=== PATIENT | female | born 1970 | race Caucasian/White ===

== ENCOUNTER 2025-04-12 13:53 | Inpatient (IN) | payer MEDICAID ==
[~2025-04-12] VITALS: Ht 162.6 cm; Wt 67.7 kg
[2025-04-12 13:57] VITALS: PULSE 66; RESP 12; O2SAT 99
--- NOTE | 2025-04-12 14:07 | ED.PDOC ---
HPI Comments This is a 55 year old female presenting to the ED with chief complaint of syncope. Patient reports that she came into the hospital to visit an admitted family member, noting she donated blood earlier today. Patient relays that she then had a syncopal episode while visiting her family member. Patient states that she is now unable to walk on her own. Nurse notes that the patient's BP was at 78/53 initially, improving to 100/72 now. Patient denies any head injury, chest pain, SOB, N/V, or dizziness. 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 LOCAL TRUCK DRIVER History Family History Family History: Reviewed,noncontributory to illness, Unknown Social History Smoker: Non-Smoker Alcohol: Denies ETOH Use Drugs: Denies Drug Use Lives In: Home Constitutional: reports: fatigue; denies: chills, diaphoresis, fever, malaise, sweats, weakness, others EENTM: denies: blurred vision, double vision, ear bleeding, ear discharge, ear drainage, ear pain, ear ringing, eye pain, eye redness, hearing loss, mouth pain, mouth swelling, nasal discharge, nose bleeding, nose congestion, nose pain, photophobia, tearing, throat pain, throat swelling, voice changes, others Respiratory: denies: cough, hemoptysis, orthopnea, SOB at rest, shortness of breath, SOB with excertion, stridor, wheezing, others Cardiovascular: reports: syncope; denies: chest pain, dizzy spells, diaphoresis, Dyspnea on exertion, edema, irregular heart beat, left arm pain, lightheadedness, palpitations, PND, others Gastrointestinal: denies: abdomen distended, abdominal pain, blood streaked bowels, constipated, diarrhea, dysphagia, difficulty swallowing, hematemesis, melena, nausea, poor appetite, poor fluid intake, rectal bleeding, rectal pain, vomiting, others Genitourinary: denies: abnormal vagina bleeding, burning, dyspareunia, dysuria, flank pain, frequency, hematuria, incontinence, pain, , vagina discharge, urgency, others Neurological: denies: dizziness, fainting, headache, left sided numbness, left sided weakness, numbness, paresthesia, pre-existing deficit, right sided numbness, right sided weakness, seizure, speech problems, tingling, tremors, weakness, others Musculoskeletal: denies: back pain, gout, joint pain, joint swelling, muscle pain, muscle stiffness, neck pain, others Integumetry: denies: bruises, change in color, change in hair/nails, dryness, laceration, lesions, lumps, rash, wounds, others Allergic/Immunocompromised: denies: Difficulty Healing, Frequent Infections, Hives, Itching, others Hematologic/Lymphatic: denies: anemia, blood clots, easy bleeding, easy bruising, swollen glands, others Endocrine: denies: excessive hunger, excessive sweating, excessive thirst, excessive urination, flushing, intolerance to cold, intolerance to heat, unexplained weight gain, unexplained weight loss, others Psychiatric: denies: anxiety, bipolar disorder, depression, hopeless, panic disorder, schizophrenia, sleepless, suicidal, others All Other Systems: Reviewed and Negative Physical Exam General Appearance: No Apparent Distress, Normal HEENT: Normal ENT Inspection, Pharynx Normal, TMs Normal Neck: Full Range of Motion, Non-Tender, Normal, Normal Inspection Respiratory: Chest Non-Tender, Lungs Clear, No Accessory Muscle Use, No Respiratory Distress, Normal Breath Sounds Cardiovascular: No Edema, No JVD, No Murmur, No Gallop, Normal Peripheral Pulses, Regular Rate/Rhythm Breast Exam: Deferred Gastrointestinal: No Organomegaly, Non Tender, No Pulsatile Mass, Normal Bowel Sounds, Soft Genitalia: Deferred Pelvic: Deferred Rectal: Deferred Extremities: No calf tenderness, Normal capillary refill, Normal inspection, Normal range of motion, Non-tender, No pedal edema Musculoskeletal : Apperance: Normal Neurologic: Alert, cadd operator II-XII nml as Tested, No Motor Deficits, Normal Affect, Normal Mood, No Sensory Deficits Cerebellar Function: Normal Reflexes: Normal Skin: Dry, Normal Color, Warm Lymphatic: No Adenopathy Was a procedure done? Was a procedure done?: No CP Differential Dx Differential Diagnosis: ME Differential Diagnosis: HTN Essential, HTN Accelerated Differential Diagnosis: Gastritis, Myocardial Infarction X-Ray, Labs, Meds, VS Vital Signs Date Time Temp Pulse Resp B/P (MAP) Pulse Ox O2 Delivery O2 Flow Rate FiO2 04/12/25 17:00 68 17 102/58 (73) 98 04/12/25 16:10 59 04/12/25 16:05 61 04/12/25 16:00 59 04/12/25 15:07 62 04/12/25 14:07 96.4 67 14 114/74 99 96.4 04/12/25 13:57 96.5 66 12 124/74 (91) 99 96.5 04/12/25 13:57 66 12 99 Room Air* 0 21 Lab Test 04/12/25 16:48 04/12/25 14:54 04/12/25 14:03 Range/Units Troponin I High Sensitivity 4 < 3 L 3 L </=34 ng/L White Blood Count 6.7 4.4-10.8 10^3/uL Red Blood Count 4.96 4.0-5.20 10^6/uL Hemoglobin 14.9 12.2-16.2 g/dL Hematocrit 44.1 36.0-46.0 % Mean Corpuscular Volume 88.9 80.0-100.0 fL Mean Corpuscular Hemoglobin 30.0 28.0-32.0 pg Mean Corpuscular Hemoglobin Concent 33.7 32.0-36.0 g/dL Red Cell Distribution Width 13.6 11.8-14.3 % Platelet Count 153 140-450 10^3/uL Mean Platelet Volume 9.3 6.9-10.8 fL Neutrophils (%) (Auto) 45.2 37.0-80.0 % Lymphocytes (%) (Auto) 47.7 10.0-50.0 % Monocytes (%) (Auto) 5.3 0.0-12.0 % Eosinophils (%) (Auto) 1.2 0.0-7.0 % Basophils (%) (Auto) 0.6 0.0-2.0 % Neutrophils # (Auto) 3.0 1.6-8.6 10 ^3/uL Lymphocytes # (Auto) 3.2 0.4-5.4 10 ^3/uL Monocytes # (Auto) 0.4 0-1.3 10 ^3/uL Eosinophils # (Auto) 0.1 0-0.8 10 ^3/uL Basophils # (Auto) 0 0-0.2 10 ^3/uL Nucleated Red Blood Cells 0.1 % Sodium Level 142 136-145 mmol/L Potassium Level 3.9 3.5-5.1 mmol/L Chloride Level 106 98-107 mmol/L Carbon Dioxide Level 24 20-31 mmol/L Anion Gap 12 5-15 Blood Urea Nitrogen 10 9-23 mg/dL Creatinine 1.05 H 0.550-1.02 mg/dL Glomerular Filtration Rate Calc 64 >90 mL/min BUN/Creatinine Ratio 9.5 L 10.0-20.0 Serum Glucose 91 74-106 mg/dL Calcium Level 9.8 8.7-10.4 mg/dL Time of 1ST Reevaluation: 14:56 Reevaluation 1ST: Improved Patient Education/Counseling: Diagnosis, Treatment Family Education/Counseling: No Family Present SEPSIS Sepsis Screen Physician Orders Chest Portable (04/12/25 14:03) Head Without Contrast (04/12/25 14:03) Electrocardigram (04/12/25 15:03) Electrocardigram (04/12/25 17:03) Urinalysis (04/12/25 14:04) Vital Signs Date Time Temp Pulse Resp B/P (MAP) Pulse Ox O2 Delivery O2 Flow Rate FiO2 04/12/25 17:00 68 17 102/58 (73) 98 04/12/25 16:10 59 04/12/25 16:05 61 04/12/25 16:00 59 04/12/25 15:07 62 04/12/25 14:07 96.4 67 14 114/74 99 96.4 04/12/25 13:57 96.5 66 12 124/74 (91) 99 96.5 04/12/25 13:57 66 12 99 Room Air* 0 21 Laboratory Tests Test 04/12/25 14:03 White Blood Count 6.7 10^3/uL (4.4-10.8) Departure 1 Departure Time of Disposition: 17:29 (Patient presented with syncope today and should be admitted. Data: 1. I ordered and reviewed the result of at least 3 labs includin g a CBC, BMP, and troponin. 2. I independently interpreted the following tests: EKG which shows a sinus arrhythmia and a chest x-ray which shows benign chest and a CT head which shows benign brain.Risk:This patient has a high risk of morbidity due to further diagnostic testing or treatment and may suffer from an acute cardiac, neurologic, or infectious disorder. Rationale: Patient should be admitted to the hospital for further management.) Impression: Primary Impression: Syncope and collapse Disposition: ADMITTED INPATIENT Admit to: Tele Condition: Guarded e-Prescriptions No Active Prescriptions or Reported Meds Critical Care Note Critical Care Time?: Yes Critical care comment: Syncope and collapse Authorized and Performed by: Huy Dixon MD Total critical care time: Approximately 39 minutes Due to a high probability of clinically significant, life threatening deterioration, the patient required my highest level of preparedness to intervene emergently and I personally spent this critical care time directly and personally managing the patient. This critical care time included obtaining a history; examining the patient; pulse oximetry; ordering and review of studies; arranging urgent treatment with development of a management plan; evaluation of patient's response to treatment; frequent reassessment; and, discussions with other providers. This critical care time was performed to assess and manage the high probability of imminent, life-threatening deterioration that could result in multi-organ failure. It was exclusive of separately billable procedures and treating other patients and teaching time. Please see my other sections and the rest of the note for further information on patient assessment and treatment. Stability Stability form required: No Heart Score Heart Score: Heart Score Response (Comments) Value History Moderate Suspicious 1 EKG Normal 0 Age 45-64 1 Risk Factors 1 or 2 risk factors 1 Troponin 1-2 x's Normal limit 1 Total 4 I personally scribed for HUY DIXON MD ([email or web address]) on 04/12/25 at 14:07. Electronically submitted by Tang Hurtado ([email or web address]). HUY DIXON MD Apr 12, 2025 14:07
[2025-04-12 14:14] LABS: Hematocrit 44.1 % (36.0-46.0); Hemoglobin 14.9 g/dL (12.2-16.2); Mean Corpuscular Hemoglobin 30.0 pg (28.0-32.0); Mean Corpuscular Volume 88.9 fL (80.0-100.0); Nucleated Red Blood Cells % 0.1 %
[2025-04-12 14:24] LABS: Chloride 106 mmol/L (98-107); Potassium 3.9 mmol/L (3.5-5.1); Sodium 142 mmol/L (136-145)
[2025-04-12 14:25] LABS: Anion Gap 12 (5-15); Calcium 9.8 mg/dL (8.7-10.4); Carbon Dioxide 24 mmol/L (20-31)
[2025-04-12 14:30] LABS: BUN/Creatinine Ratio 9.5 (10.0-20.0); Blood Urea Nitrogen 10 mg/dL (9-23); Glucose 91 mg/dL (74-106)
--- NOTE | 2025-04-12 14:57 | DVH ---
CHEST RADIOGRAPH Indication: syncope Technique: Single frontal view of the chest was obtained Comparison: None FINDINGS: Lines and Tubes: None Lungs: No focal consolidation. Appears to be a gas-filled viscus below the left diaphragm most likely gas-filled stomach if however pneumoperitoneum is of clinical concern recommend CT of the abdomen an d pelvis. Pleura: No effusion. No pneumothorax. Cardiomediastinal contours: Unremarkable Bones: No acute osseous abnormality. IMPRESSION: 1. No acute cardiopulmonary disease.
--- NOTE | 2025-04-12 15:00 | DVH ---
CLINICAL INFORMATION: Syncope. Acute loss of consciousness. TECHNIQUE: Axial imaging was obtained through the brain without contrast. Coronal and sagittal reform atted images were obtained, reviewed, and stored. Images were reviewed in brain and bone windows. Al l CT scans at this medical facility are performed using dose modulation techniques as appropriate to a performed exam including the following: Automated exposure control was utilized; adjustment of the MA and/or KV according to patient size; and use of iterative reconstruction technique. CTDIvol = 65.5 7 mGy DLP = 1290.57 mGy-cm COMPARISON: None FINDINGS: Artifact limits evaluation for subtle findings. There is no acute intracranial hemorrhage. No mass effect or midline shift. The ventricles and sulci are within normal limits in size for age. B alex cisterns are patent. The calvarium is unremarkable. Paranasal sinuses and mastoid air cells are clear. IMPRESSION: No CT evidence of acute intracranial abnormality.
--- NOTE | 2025-04-12 15:08 | ECG ---
[facility] Test Date: 2025-04-12 Test Time: 15:07:06 Pat Name: TWIN KATE Department: [facility] ED Room: [address] [place] [address] Gender: F Inclusion Paraeducator: YESENIA : 1970 Requested By: HUY MEDINA Order Number: [id number] Reading MD: Frank Ortiz Measurements Intervals [place] Rate: 62 P: 66 [place]: 132 QRS: -13 QRSD: 82 T: 63 QT: 420 QTc: 427 Interpretive Statements Sinus rhythm Electronically Signed On 04-15-2025 20:32:17 PDT by Frank Ortiz Please click the below link to view image of tracing.
--- NOTE | 2025-04-12 18:10 | ECG ---
[facility] Test Date: 2025-04-12 Test Time: 18:09:16 Pat Name: TWIN KATE Department: [facility] ED Patient ID: [id number] Room: [address] [place] [address] Gender: F Cargo Service Supervisor: AM : 1970 Requested By: HUY MEDINA Order Number: [id number] Reading MD: Frank Ortiz Measurements Intervals [place] Rate: 64 P: 75 [place]: 161 QRS: -20 QRSD: 83 T: 60 QT: 433 QTc: 447 Interpretive Statements Sinus rhythm Borderline left axis deviation Electronically Signed On 04-15-2025 20:34:49 PDT by Frank Ortiz Please click the below link to view image of tracing.
[2025-04-12] MEDS: NALOXONE HCL 1MG/ML 2ML SYRINGE IV ONE (18:30)
--- NOTE | 2025-04-12 19:26 | ECG ---
[facility] Test Date: 2025-04-12 Test Time: 16:05:58 Pat Name: TWIN KATE Department: [facility] ED Room: [address] [place] [address] Gender: F Computer Programming Supervisor: ROSARIO : 1970 Requested By: HUY MEDINA Order Number: [id number] Reading MD: Frank Ortiz Measurements Intervals [place] Rate: 61 P: 73 GA: 168 QRS: 2 QRSD: 81 T: 67 QT: 441 QTc: 445 Interpretive Statements Sinus rhythm Electronically Signed On 04-15-2025 20:32:35 PDT by Frank Ortiz Please click the below link to view image of tracing.
[2025-04-12 19:30] VITALS: O2SAT 99
[2025-04-12 19:40] LABS: Urine Protein, UAD Negative (Negative)
[2025-04-12 19:56] LABS: Amphetamine Screen, Urine Neg (NEGATIVE); Barbiturate Scree,Urine Neg (NEGATIVE); Benzodiazephine Screen, Urine Neg (NEGATIVE); Cannabinoid Screen, Urine Neg (NEGATIVE); Cocaine Screen, Urine Neg (NEGATIVE); Opiate Scree,Urine Neg (NEGATIVE); Phencyclidine Screen, Urine Neg (NEGATIVE)
[2025-04-12] MEDS: IOHEXOL 350 MG/ML 100ML IJ ONE (21:01)
--- NOTE | 2025-04-12 21:29 | DVH ---
CT ANGIO HEAD/Neck INDICATION: ALOC TECHNIQUE: Volumetric multi-detector CT images of the head were obtained without administration of IV contrast.. CT angiography along with MIP and MPR images were obtained of the [place] of [place] arteri es. CT angiography along with MIP and MPR images were obtained of the cervical carotid and vertebral arteries. All CT scans at this facility use dose modulation, iterative reconstruction, and/or weight based dosing when appropriate to reduce radiation dose to as low as reasonably achievable. 3-D postpr ocessing was performed on a separate workstation under radiologist supervision. IV CONTRAST: 100 mL of low osmolar intravenous iodinated contrast material was administered. COMPARISON: CT HEAD WITHOUT CONTRAST on DOS: 04/12/25 FINDINGS: CT HEAD: Parenchyma: No acute hemorrhage. There is no mass effect, midline shift, or herniation. There is pres ervation of the real white differentiation. Ventricles: There is no hydrocephalus. Extra-axial spaces: There are no extra-axial fluid collections. Other: The bony structures are intact. Visualized portions of the paranasal sinuses and mastoid air cells are clear. ANTERIOR CIRCULATION: Distal internal carotid arteries including the petrous, cavernous, and supraclinoid segments are stevenson nt bilaterally. Anterior cerebral arteries including the A1 and A2 segments are patent bilaterally. Anterior communicating artery patent without aneurysm formation. Middle cerebral arteries including the horizontal M1 and sylvian M2 are patent bilaterally. Posterior communicating arteries are seen bilaterally. POSTERIOR CIRCULATION: Posterior cerebral arteries are patent bilaterally. Vertebral arteries are codominant The intracranial segments of the vertebral arteries are patent bilaterally. The basilar artery is patent without aneurysm formation. The posterior inferior cerebellar arteries are patent bilaterally. CERVICAL VESSELS: The thoracic aortic arch is patent without evidence of aneurysmal dilatation or dissection. The right common carotid artery, carotid bulb, and cervical segment of the right internal carotid art koby are patent The left common carotid artery, carotid bulb, and cervical segment of the left internal carotid arter y are patent The cervical segments of the right vertebral artery are patent OTHER: Small 2 mm oval-shaped pulmonary nodules located in the periphery of the right upper lobe. IMPRESSION: 1. No large vessel occlusion, aneurysmal dilatation, or dissection seen within the intracranial or ce rvical vessels. 2. Small 2 mm oval-shaped pulmonary nodules located in the periphery of the right upper lobe. Conside r dedicated CT of the chest if clinically indicated.
--- NOTE | 2025-04-12 22:09 | DVHHPRES ---
History of Present Illness Resident Creating Document: DONOVAN CASTANO History of Present Illness Ms. Mooney is a 55-year-old female with no relevant prior medical history, who presents today with chief complaint of loss of consciousness. The patient states she donated blood and then came to visit a family member at this institution today when she had sudden onset of nausea and loss of consciousness. She was brought to the ED for further evaluation. On evaluation in the ED, vitals were within normal range. 12 lead EKG showed normal sinus rhythm. Initial labs show CBC within normal range and creatinine 1.05. UDS and blood alcohol are negative. UA is without significant findings. Chest Xray, head CT, and head/neck CT angio show no significant findings. She was given Naloxone 2 mg IV once and started on IV fluids. She was admitted for further work up and management. PMHx: Fibroids Surgical History: Hysterectomy Allergies: Denies Social: Denies drug, alcohol, and tobacco use. Lives with her parents, states she feels safe. Review of Systems Review of Systems Constitutional: Denies weight loss, fever and chills. HEENT: Denies changes in vision and hearing. Respiratory: Denies shortness of breath and cough Cardiovascular: Denies chest discomfort or palpitations GI: Denies abdominal distention, abdominal pain, diarrhea : Denies dysuria and urinary frequency. Musculoskeletal: denies symptoms Skin: Denies rash and pruritus. Neurological: Refers headache, denies dizziness vision or hearing problems Allergies: Coded Allergies: No Known Drug Allergy (Verified Allergy, Unknown, 10/17/15) Exam Vital Signs Vital Signs Date Time Temp Pulse Resp B/P (MAP) Pulse Ox O2 Delivery O2 Flow Rate FiO2 04/12/25 21:06 67 12 104/69 (81) 96 04/12/25 19:30 Room Air* 0 21 04/12/25 19:00 97.1 97.1 Exam General: The patient somnolent and oriented in person place and time. Patient following commands HEENT: Normocephalic, atraumatic, pain to palpation of occipital region, normal reactive pupils, EOM intact, pink conjunctiva, pink moist mucous membrane Respiratory/pulmonary: Bilateral chest expansion, no pain on palpation of chest wall, clear lungs bilaterally, vesicular murmurs present in almost all lung bell, no associated crackles or wheezes. Cardiovascular: Normal RRR, normal S1 and S2, no murmurs Abdomen: Abdomen nondistended, normal bowel sounds, soft, there is no pain to palpation in any of the abdominal quadrants, no palpable masses. Extremities: No deformities, there is no peripheral edema present at the lower extremities, normal pulses Skin: No rashes or pruritus, there is no sacral edema present at this time. Neurological: Intact cranial nerves with no focal neurologic deficits, Brudzinski and Kernig sign negative. Labs/Xrays Labs Test 04/12/25 16:48 04/12/25 16:30 04/12/25 14:03 Range/Units Troponin I High Sensitivity 4 </=34 ng/L Urine Color Light-yellow Yellow Urine Clarity Clear Clear Urine pH 7.0 5.0-9.0 Urine Specific [place] 1.012 1.001-1.035 Urine Protein Negative Negative Urine Ketones Negative Negative Urine Blood Negative Negative /uL Urine Nitrite Negative Negative Urine Bilirubin Negative Negative Urine Urobilinogen Normal Negative mg/dL Urine Leukocyte Esterase Negative Negative /uL Urine RBC 1 0 - 4 /hpf Urine Microscopic WBC 1 0-5 /HPF Urine Squamous Epithelial Cells Few <5 /hpf Urine Bacteria None seen None Seen /hpf Urine Glucose Normal Normal mg/dL Urine Opiates Screen Neg NEGATIVE Urine Fentanyl Screen Neg NEGATIVE Urine Barbiturates Screen Neg NEGATIVE Urine Phencyclidine Screen Neg NEGATIVE Urine Amphetamines Screen Neg NEGATIVE Urine Benzodiazepines Screen Neg NEGATIVE Urine Cocaine Screen Neg NEGATIVE Urine Cannabinoids Screen Neg NEGATIVE White Blood Count 6.7 4.4-10.8 10^3/uL Red Blood Count 4.96 4.0-5.20 10^6/uL Hemoglobin 14.9 12.2-16.2 g/dL Hematocrit 44.1 36.0-46.0 % Mean Corpuscular Volume 88.9 80.0-100.0 fL Mean Corpuscular Hemoglobin 30.0 28.0-32.0 pg Mean Corpuscular Hemoglobin Concent 33.7 32.0-36.0 g/dL Red Cell Distribution Width 13.6 11.8-14.3 % Platelet Count 153 140-450 10^3/uL Mean Platelet Volume 9.3 6.9-10.8 fL Neutrophils (%) (Auto) 45.2 37.0-80.0 % Lymphocytes (%) (Auto) 47.7 10.0-50.0 % Monocytes (%) (Auto) 5.3 0.0-12.0 % Eosinophils (%) (Auto) 1.2 0.0-7.0 % Basophils (%) (Auto) 0.6 0.0-2.0 % Neutrophils # (Auto) 3.0 1.6-8.6 10 ^3/uL Lymphocytes # (Auto) 3.2 0.4-5.4 10 ^3/uL Monocytes # (Auto) 0.4 0-1.3 10 ^3/uL Eosinophils # (Auto) 0.1 0-0.8 10 ^3/uL Basophils # (Auto) 0 0-0.2 10 ^3/uL Nucleated Red Blood Cells 0.1 % Sodium Level 142 136-145 mmol/L Potassium Level 3.9 3.5-5.1 mmol/L Chloride Level 106 98-107 mmol/L Carbon Dioxide Level 24 20-31 mmol/L Anion Gap 12 5-15 Blood Urea Nitrogen 10 9-23 mg/dL Creatinine 1.05 H 0.550-1.02 mg/dL Glomerular Filtration Rate Calc 64 >90 mL/min BUN/Creatinine Ratio 9.5 L 10.0-20.0 Serum Glucose 91 74-106 mg/dL Calcium Level 9.8 8.7-10.4 mg/dL SEPSIS Sepsis Screen Date sepsis recognized/suspect: Apr 12, 2025 Time Sepsis recognized/suspect: 1054 Recent Procedure: No On Antibiotic Therapy: No Respiratory Rate >20: No Heart Rate >90: No Temp<36 C (96.8 F) or >38.3 C: No SBP <90 or MAP <65 mmHG: Yes New Acute Mental Status Change: No Is the patient on CPAP, BIPAP,: No Physician Orders Insert/Manage Urinary Catheter QSHIFT (04/12/25 18:00) Angio Head/Neck (04/12/25 19:47) Vital Signs Date Time Temp Pulse Resp B/P (MAP) Pulse Ox O2 Delivery O2 Flow Rate FiO2 04/12/25 21:06 67 12 104/69 (81) 96 04/12/25 19:30 99 Room Air* 0 21 04/12/25 19:00 97.1 63 12 113/75 (88) 98 97.1 04/12/25 18:09 64 04/12/25 18:09 64 04/12/25 17:00 68 17 102/58 (73) 98 04/12/25 16:10 59 04/12/25 16:05 61 04/12/25 16:00 59 04/12/25 15:07 62 Laboratory Tests Test 04/12/25 14:03 White Blood Count 6.7 10^3/uL (4.4-10.8) Medications Medications Dose Ordered Sig/Julianna Route Start Time Stop Time Status Last Admin Dose Admin Naloxone HCl 2 mg ONCE ONCE IV 04/12/25 15:00 04/12/25 15:01 DC 04/12/25 18:30 2 MG Assessment/Plan Assessment/Plan Assessment and Plan: Syncope possible vasovagal - Naloxone 2 mg IV once. UDS negative - NS 1000 cc bolus - NS maintenance 125 cc/hr - Ordered STI - Probably secondary to blood donation (patient had drop on her hemoglobin and hematocrit). Completed pocus at bedside which showed collapsible IVC. Stroke ruled out - Head CT: No evidence of acute intracranial abnormality - Head and Neck angio: No large vessel occlusion, aneurysmal dilatation, or dissection seen within the intracranial or cervical vessels Pulmonary Nodule - Head and and Neck angio: 2 mm oval-shaped pulmonary nodules located in the periphery of the right upper lobe - Follow up as out patient [place] hemodynamically mediated (VMN) Hypokalemia, 2.9 - Potassium IV 60 mEq IV. - Monitor BMP Normocytic Anemia, likely dilutional - Monitor H and H Morbid obesity, BMI 54.9 kg/m2 - I have counseled on healthy life style modifications - Recommend re-weighing patient since her phenotype is not concordant with morbid obesity Diet: NPO DVT prophylaxis: Enoxaparin 40 mg SC daily GI prophylaxis: Protonix 40 mg IV daily Case discussed with Dr. Fagan Goals of care discussed with patient and her mother, Aurea ([phone]), for over 25 minutes. FULL CODE. Plan discussed with: Patient, Other (Mother, Nurses) Date of Service: Apr 12, 2025 Billing Provider: LINNETTE FAGAN MD Common Visit Codes: 65081-[id number] INP/OBS CARE (HIGH) Secondary Visit Codes: 48036-TPWFHEQT CARE PLAN 30 MINUTES DONOVAN CASTANO RESIDENT Apr 12, 2025 22:08 SHAMA OWUSU RESIDENT Apr 13, 2025 08:04
[2025-04-12] MEDS: SODIUM CHLORIDE 0.9% 1,000 ML IV SCH (22:18)
[2025-04-12] MEDS: IBUPROFEN 600 MG TAB PO ONE (22:37)
[2025-04-12 22:54] LABS: Alkaline Phosphatase 58 U/L (46-116); Magnesium 2.4 mg/dL (1.6-2.6); Total Protein 7.2 g/dL (5.7-8.2)
[2025-04-12 22:55] LABS: Albumin 4.2 g/dL (3.2-4.8); Bilirubin, Direct 0.1 mg/dL (<0.3); Bilirubin, Total 0.5 mg/dL (0.2-1.0)
[2025-04-12 22:57] LABS: Alanine Aminotransferase < 9 U/L (7-40)
[2025-04-13] MEDS: SODIUM CHLORIDE 0.9% 1,000 ML IV ONE (00:20)
[2025-04-13 03:53] LABS: Hematocrit 27.5 % (36.0-46.0); Hemoglobin 9.8 g/dL (12.2-16.2); Mean Corpuscular Hemoglobin 31.0 pg (28.0-32.0); Mean Corpuscular Volume 87.3 fL (80.0-100.0); Nucleated Red Blood Cells % 0.1 %
[2025-04-13 04:11] LABS: Anion Gap 11 (5-15); Carbon Dioxide 21 mmol/L (20-31); Sodium 145 mmol/L (136-145)
[2025-04-13 04:12] LABS: Calcium 6.6 mg/dL (8.7-10.4); Chloride 113 mmol/L (98-107); Potassium 2.9 mmol/L (3.5-5.1)
[2025-04-13 04:17] LABS: BUN/Creatinine Ratio 12.7 (10.0-20.0); Glucose 77 mg/dL (74-106)
[2025-04-13 04:18] LABS: Blood Urea Nitrogen 8 mg/dL (9-23)
[2025-04-13] MEDS: POTASSIUM CHLORIDE 60 MEQ, LIDOCAINE 1% (LOCAL ANESTH.) 6 ML in SODIUM CHL 0.9% 500 ML IV ONE (08:48)
[2025-04-13] MEDS: ENOXAPARIN SOD 40 MG/0.4 ML SYRINGE SC SCH (09:19)
[2025-04-13] MEDS: CALCIUM GLUC 1,000mg/50ml-NS 50 ML IV SCH (09:44)
[2025-04-13] MEDS: PANTOPRAZOLE 40 MG/10 ML VIAL INJ IV SCH (10:42)
[2025-04-13 13:08] VITALS: PULSE 74; RESP 13; O2SAT 97
[2025-04-13 14:59] VITALS: BP 111/59; PULSE 60; RESP 16; RESP 18; TEMP 98.1; O2SAT 98
[2025-04-13 16:44] VITALS: BP_SYST 111; BP_SYST 123; BP_DIAS 59; BP_DIAS 87; PULSE 60; PULSE 68; RESP 16; RESP 24; TEMP 97.5; TEMP 98.1; O2SAT 100; O2SAT 98
--- NOTE | 2025-04-13 18:19 | DVHPN2 ---
Subjective I am assuming the care of the patient was from today onwards. Patient's family member at bedside who told me that patient after donating blood was in some were with her friend and passed out. 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 Medications Current Medications Medications Dose Ordered Sig/Julianna Route Start Time Stop Time Status Last Admin Dose Admin Enoxaparin Sodium 40 mg DAILY SC 04/13/25 10:00 04/13/25 09:19 40 MG Sodium Chloride 1,000 ml @ 125 mls/hr Q8H IV 04/12/25 22:00 04/13/25 16:32 125 MLS/HR Pantoprazole Sodium 40 mg DAILY IV 04/13/25 10:00 04/13/25 10:42 40 MG Laboratory Results Laboratory Tests 04/13/25 03:10 Chemistry Test 04/13/25 03:10 Calcium Level 6.6 mg/dL (8.7-10.4) L Urinalysis Test 04/12/25 16:30 Urine Color Light-yellow (Yellow) Urine Clarity Clear (Clear) Urine pH 7.0 (5.0-9.0) Urine Specific [place] 1.012 (1.001-1.035) Urine Protein Negative (Negative) Urine Ketones Negative (Negative) Urine Blood Negative /uL (Negative) Urine Nitrite Negative (Negative) Urine Bilirubin Negative (Negative) Urine Urobilinogen Normal mg/dL (Negative) Urine Leukocyte Esterase Negative /uL (Negative) Urine RBC 1 /hpf (0 - 4) Urine Microscopic WBC 1 /HPF (0-5) Urine Squamous Epithelial Cells Few /hpf (<5) Urine Bacteria None seen /hpf (None Seen) Urine Glucose Normal mg/dL (Normal) Assessment/Plan Assessment/Plan 1. syncope suspect vasovagal/orthostatic, rule out cardiac arrhythmias 2. Acute kidney injury suspected secondary to vasomotor nephropathy 3. Hypokalemia 4. Morbid obesity classIII -check orthostatic vitals, close monitoring on telemetry, 2D echo cardiology consultation Plan discussed with: Other (Patient's family member at bedside.) My Orders Orders - SANIA BENTON MD Procedure Category Date Status Time Echo 2d Mode Cardiac US 04/13/25 Logged DOP 15:16 * Cardiology Consult CONS 04/13/25 Transmitted 15:19 Date of Service: Apr 13, 2025 Billing Provider: SANIA BENTON MD Common Visit Codes: [id number] INP/OBS CARE(MOD) SANIA BENTON MD Apr 13, 2025 18:19
--- NOTE | 2025-04-13 18:24 | DVHINCON2 ---
Date Seen: Apr 13, 2025 Referring Physician MD Swathi Reason for Consultation Syncope History of Present Illness This is a 55-year-old female patient who presents to the emergency room with chief complaint of syncopal episode. The patient reports that earlier in the day she donated blood then came to this facility to visit a friend who is a patient here. While visiting her friend, she reports loss of consciousness. She reports precipitating symptoms of cool/ clammy skin, followed by loss of consciousness. She reports waking up in a hospital bed. Cardiology has been consulted at this time for syncope. Initial twelve electrocardiogram reveals normal sinus rhythm without any significant ST segment changes. Serial troponin levels have been negative. Significant past medical history includes seizure disorder, intestinal parasite infection, TIA, and remote history of methamphetamine use. Past Medical History Past medical history reviewed. No other significant than mentioned above. Past Surgical History Hysterectomy x3 Family History: FH: seizures G8 MOTHER FH: skin cancer G8 MOTHER Migraine headaches in mother G8 MOTHER Family History Family history reviewed. Social History Patient reports a previous history of methamphetamine use, quit in 2003 Denies tobacco use Denies alcohol use Allergies: Coded Allergies: No Known Drug Allergy (Verified Allergy, Unknown, 10/17/15) Home Meds No Active Prescriptions or Reported Meds Home Meds Denies taking any prescribed medications Current Medications Current Medications Medications (Trade) Dose Ordered Sig/Julianna Route PRN Reason Start Time Stop Time Status Last Admin Enoxaparin Sodium (Lovenox) 40 mg DAILY SC 04/13/25 10:00 04/13/25 09:19 Sodium Chloride 1,000 ml @ 125 mls/hr Q8H IV 04/12/25 22:00 04/13/25 16:32 Pantoprazole Sodium (Protonix) 40 mg DAILY IV 04/13/25 10:00 04/13/25 10:42 Calcium Gluconate/ Sodium Chloride 50 ml @ 100 mls/hr Q30M IV 04/13/25 08:00 04/13/25 09:40 DC 04/13/25 09:49 Review of Systems Constitutional: No symptom reported Ears, Nose, & Throat: No symptom reported Eyes: No symptom reported Neurological: Syncope Pulmonary/Respiratory: No symptoms reported Cardiovascular: No symptom reported Gastrointestinal: No symptom reported Genitourinary: No symptom reported Musculoskeletal: No symptom reported Skin: No symptom reported Psychiatric: No symptom reported Endocrine: No symptom reported Hematologic/Lymphatic: No symptom reported Vital Signs Vital Signs Date Time Temp Pulse Resp B/P (MAP) Pulse Ox O2 Delivery O2 Flow Rate FiO2 04/13/25 16:44 97.5 68 24 123/87 (99) 100 97.5 04/13/25 14:59 Room Air* 0 21 Physical Exam General Appearance: Cooperative. Well-developed. Well-nourished. No acute distress. Pulmonary/Respiratory: Clear, bilateral breaths sounds. Cardiovascular/Chest: Regular rate and rhythm. Peripheral Pulses: 2+ Radial (R). 2+ Radial (L). 2+ Pedal (R). 2+ Pedal (L) Abdominal Exam: Normal bowel sounds. Ankle Exam: Negative ankle edema Lower extremities: Negative lower extremity edema Neuro/Mental Status: A/OX4, coherent. Thoughts/Psych: Normal thought pattern. Appropriate mood and affect. Good judgment and insight. Appearance: No acute distress. Skin Exam: Normal inspection. Normal color. Warm and dry. Labs/Diagnostic Data Labs Test 04/13/25 10:27 04/13/25 03:10 04/12/25 23:32 04/12/25 22:20 Range/Units HIV (1&2) Antibody Negative Negative White Blood Count 4.8 # 4.4-10.8 10^3/uL Red Blood Count 3.15 L 4.0-5.20 10^6/uL Hemoglobin 9.8 #L 12.2-16.2 g/dL Hematocrit 27.5 #L 36.0-46.0 % Mean Corpuscular Volume 87.3 80.0-100.0 fL Mean Corpuscular Hemoglobin 31.0 28.0-32.0 pg Mean Corpuscular Hemoglobin Concent 35.5 32.0-36.0 g/dL Red Cell Distribution Width 13.1 11.8-14.3 % Platelet Count 102 L 140-450 10^3/uL Mean Platelet Volume 9.2 6.9-10.8 fL Neutrophils (%) (Auto) 51.7 37.0-80.0 % Lymphocytes (%) (Auto) 41.4 10.0-50.0 % Monocytes (%) (Auto) 5.3 0.0-12.0 % Eosinophils (%) (Auto) 1.1 0.0-7.0 % Basophils (%) (Auto) 0.5 0.0-2.0 % Neutrophils # (Auto) 2.5 1.6-8.6 10 ^3/uL Lymphocytes # (Auto) 2.0 0.4-5.4 10 ^3/uL Monocytes # (Auto) 0.3 0-1.3 10 ^3/uL Eosinophils # (Auto) 0.1 0-0.8 10 ^3/uL Basophils # (Auto) 0 0-0.2 10 ^3/uL Nucleated Red Blood Cells 0.1 % Sodium Level 145 136-145 mmol/L Potassium Level 2.9 L 3.5-5.1 mmol/L Chloride Level 113 H 98-107 mmol/L Carbon Dioxide Level 21 20-31 mmol/L Anion Gap 11 5-15 Blood Urea Nitrogen 8 L 9-23 mg/dL Creatinine 0.63 # 0.550-1.02 mg/dL Glomerular Filtration Rate Calc 106 >90 mL/min BUN/Creatinine Ratio 12.7 10.0-20.0 Serum Glucose 77 74-106 mg/dL Calcium Level 6.6 L 8.7-10.4 mg/dL Treponema pallidum Antibody Non-reactive Negative Plasma/Serum Blood Alcohol < 3.0 <10 mg/dL Lactic Acid Level 1.0 0.4-2.0 mmol/L Ammonia < 10 L 11-32 umol/L Test 04/12/25 16:48 04/12/25 16:30 04/12/25 14:54 04/12/25 14:03 Range/Units Troponin I High Sensitivity 4 </=34 ng/L Vitamin B12 Level 252 211-911 pg/mL Vitamin D 25-Hydroxy 41.1 30.0-100 ng/mL Urine Color Light-yellow Yellow Urine Clarity Clear Clear Urine pH 7.0 5.0-9.0 Urine Specific [place] 1.012 1.001-1.035 Urine Protein Negative Negative Urine Ketones Negative Negative Urine Blood Negative Negative /uL Urine Nitrite Negative Negative Urine Bilirubin Negative Negative Urine Urobilinogen Normal Negative mg/dL Urine Leukocyte Esterase Negative Negative /uL Urine RBC 1 0 - 4 /hpf Urine Microscopic WBC 1 0-5 /HPF Urine Squamous Epithelial Cells Few <5 /hpf Urine Bacteria None seen None Seen /hpf Urine Glucose Normal Normal mg/dL Urine Opiates Screen Neg NEGATIVE Urine Fentanyl Screen Neg NEGATIVE Urine Barbiturates Screen Neg NEGATIVE Urine Phencyclidine Screen Neg NEGATIVE Urine Amphetamines Screen Neg NEGATIVE Urine Benzodiazepines Screen Neg NEGATIVE Urine Cocaine Screen Neg NEGATIVE Urine Cannabinoids Screen Neg NEGATIVE Phosphorus Level 3.3 2.4-5.1 mg/dL Magnesium Level 2.4 1.6-2.6 mg/dL Total Bilirubin 0.5 0.2-1.0 mg/dL Direct Bilirubin 0.1 <0.3 mg/dL Aspartate Amino Transferase (AST) 21 13-40 U/L Alanine Aminotransferase (ALT) < 9 7-40 U/L Alkaline Phosphatase 58 46-116 U/L Total Protein 7.2 5.7-8.2 g/dL Albumin 4.2 3.2-4.8 g/dL Thyroid Stimulating Hormone (TSH) 1.69 0.55-4.78 uIU/mL Hemoglobin A1c 4.8 <5.7 % A1C Assessment Syncope, rule out cardiac etiology Rule out structural heart disease ?Vasovagal episode Hypokalemia, resolved History of TIA History of methamphetamine use Obesity Plan/Recommendation We will continue with the following plan/recommendations (Dr. Ortiz): * Transthoracic echocardiogram to evaluate cardiac function * Bilateral carotid ultrasound * Head/neck CT reveals no large vessel occlusions, aneurysmal dilatation, or dissections within the intracranial or cervical vessels * Close telemetry monitoring * Monitor and replete electrolytes as needed Thank you for allowing us to care for this patient. Please call with any questions or concerns. Critical care time spent: 44 minutes This medical document was created using an electronic medical record system with voice recognition software and computerized dictation system. Although this document has been carefully reviewed, there might still be some phonetic and typographical errors. Occasional wrong-word or ``sound-alike substitutions may have occurred due to the inherent limitations of voice recognition software. These areas are purely typographical due to imperfections of the software programs and do not reflect any compromise in the patient's medical care. Please read the chart carefully and recognize, using context, where these substitutions have occurred. Plan discussed with: Patient NYHA Physical activity limitations: NA Date of Service: Apr 13, 2025 Billing Provider: MICHELLE ALANIZ Cardiology Common Codes: [id number] INP/OBS CARE (High) Cardiology Consultation Codes: [id number] CONSULT <45MIN MICHELLE ALANIZ Apr 13, 2025 18:24
[2025-04-13 21:00] VITALS: BP 105/71; PULSE 58; RESP 16; TEMP 98; O2SAT 96
[2025-04-14 01:00] VITALS: BP 97/69; PULSE 76; RESP 16; TEMP 97.6; O2SAT 96
[2025-04-14 05:00] VITALS: BP 115/74; PULSE 71; RESP 17; TEMP 97.8; O2SAT 96
[2025-04-14 05:29] LABS: Hematocrit 36.5 % (36.0-46.0); Hemoglobin 12.6 g/dL (12.2-16.2); Mean Corpuscular Hemoglobin 30.8 pg (28.0-32.0); Mean Corpuscular Volume 89.2 fL (80.0-100.0); Nucleated Red Blood Cells % 0.1 %
[2025-04-14 05:39] LABS: Chloride 105 mmol/L (98-107); Potassium 4.2 mmol/L (3.5-5.1); Sodium 140 mmol/L (136-145)
[2025-04-14 05:40] LABS: Anion Gap 11 (5-15); Calcium 9.2 mg/dL (8.7-10.4); Carbon Dioxide 24 mmol/L (20-31)
[2025-04-14 05:45] LABS: BUN/Creatinine Ratio 7.8 (10.0-20.0); Glucose 77 mg/dL (74-106)
[2025-04-14 05:51] LABS: Blood Urea Nitrogen 7 mg/dL (9-23)
[2025-04-14 08:47] VITALS: BP 115/74; PULSE 64; RESP 16; TEMP 98; O2SAT 100
[2025-04-14 11:35] LABS: Hepatitis B Surface Antigen Negative (Negative)
[2025-04-14 11:40] LABS: Hepatitis C Antibody Negative (Negative)
[2025-04-14 13:00] VITALS: BP_SYST 105; BP_SYST 113; BP_SYST 97; BP_DIAS 60; BP_DIAS 67; BP_DIAS 88; PULSE 111; PULSE 67; PULSE 81; RESP 19; TEMP 97.6; O2SAT 97
--- NOTE | 2025-04-14 16:47 | DVHSR ---
APPROVED REPORT EXAM: Two-dimensional and M-mode echocardiogram with Doppler and color Doppler. Blood Pressure: 115/74 mmHg INDICATION Syncope RISK FACTORS Height: 5'4, Weight: 319 DIMENSIONS LVDd4.6 (3.8-5.7cm)LA (2D)2.2 (1.9-4.0cm)Aortic Root3.1 (2.0-3.7cm) LVDs2.9 (2.5-4.0cm)LA (MM) (1.9-4.0cm)Aortic Cusp Exc1.6 (1.5-2.0cm) EF (%) 60.0 (55-70%)Rt. Atrium3.4 (1.9-4.0cm)Asc. Aorta cm IVSd0.6 (0.7-1.1cm)RV (D) (1.8-2.4cm) PWd1.1 (0.7-1.1cm) Mitral Valve MitralMitral Stenosis E wave0.57m/sMV Mean GR.mmHg A wave0.60m/sMV Peak GR.mmHg E/A ratio0.92D MVAcm2 DECEL [id number] 1/2 Timems Aortic Valve Aortic ValveAortic Stenosis V10.66m/Merle Mean GR.2mmHg V20.93m/Merle Peak GR.3mmHg LVOT Diameter2.2 (1.8-2.4cm)Doppler AVA2.70cm2 Conclusion Good study. Sinus rhythm. Aortic root enlargement. Valves are normal. EF of 55% with normal RV function. Dopplers unremarkable. No pericardial effusion masses or vegetations.
[2025-04-14 16:59] VITALS: BP 101/64; PULSE 66; RESP 18; TEMP 98.8; O2SAT 98
--- NOTE | 2025-04-14 17:01 | DVHPN2 ---
Subjective Patient is currently getting echo cardiogram, orthostatic hypotension is negative. 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 Medications Current Medications Medications Dose Ordered Sig/Julianna Route Start Time Stop Time Status Last Admin Dose Admin Enoxaparin Sodium 40 mg DAILY SC 04/13/25 10:00 04/14/25 10:25 40 MG Sodium Chloride 1,000 ml @ 125 mls/hr Q8H IV 04/12/25 22:00 04/14/25 14:06 125 MLS/HR Pantoprazole Sodium 40 mg DAILY IV 04/13/25 10:00 04/14/25 10:25 40 MG Acetaminophen 650 mg Q6HP PRN PO 04/14/25 07:15 Laboratory Results Laboratory Tests 04/14/25 05:11 Chemistry Test 04/14/25 05:11 Calcium Level 9.2 mg/dL (8.7-10.4) Urinalysis Test 04/12/25 16:30 Urine Color Light-yellow (Yellow) Urine Clarity Clear (Clear) Urine pH 7.0 (5.0-9.0) Urine Specific [place] 1.012 (1.001-1.035) Urine Protein Negative (Negative) Urine Ketones Negative (Negative) Urine Blood Negative /uL (Negative) Urine Nitrite Negative (Negative) Urine Bilirubin Negative (Negative) Urine Urobilinogen Normal mg/dL (Negative) Urine Leukocyte Esterase Negative /uL (Negative) Urine RBC 1 /hpf (0 - 4) Urine Microscopic WBC 1 /HPF (0-5) Urine Squamous Epithelial Cells Few /hpf (<5) Urine Bacteria None seen /hpf (None Seen) Urine Glucose Normal mg/dL (Normal) Microbiology Microbiology Date/Time Source Procedure Growth Status 04/12/25 23:37 Blood Blood Culture - Preliminary NO GROWTH AFTER 24 HOURS OF INCUBATION. Resulted Assessment/Plan Assessment/Plan 1. syncope suspect vasovagal/orthostatic, rule out cardiac arrhythmias 2. Acute kidney injury suspected secondary to vasomotor nephropathy 3. Hypokalemia 4. Morbid obesity classIII -check orthostatic vitals, close monitoring on telemetry, 2D echo cardiology consultation Plan discussed with: Patient, Other My Orders Orders - SANIA BENTON MD Procedure Category Date Status Time Acetaminophen Tablet PHA 04/14/25 In Process (Tylenol Tablet) 07:15 Regular Diet DIET 04/14/25 Transmitted Breakfast Pt Request For Service PT 04/14/25 Logged 08:45 Date of Service: Apr 14, 2025 Billing Provider: SANIA BENTON MD Common Visit Codes: [id number] INP/OBS CARE(MOD) SANIA BENTON MD Apr 14, 2025 17:01
[2025-04-14] MEDS: ACETAMINOPHEN 325 MG TAB PO PRN (17:18)
[2025-04-14 21:00] VITALS: BP_SYST 102; BP_SYST 103; BP_SYST 82; BP_DIAS 58; BP_DIAS 68; BP_DIAS 75; PULSE 72; RESP 17; TEMP 97.9; O2SAT 98
[2025-04-15] VITALS (7 sets, daily range): BP systolic 90–111; BP diastolic 50–72; PULSE 58–103; RESP 15–18; TEMP 97.7–98.7; O2SAT 95–97
--- NOTE | 2025-04-15 15:11 | DVHPN2 ---
Subjective No cardiac events reported Denies chest pain Remained sinus rhythm Changes from previous H/P or p: No Changes Objective Vitals Vital Signs Date Time Temp Pulse Resp B/P (MAP) Pulse Ox O2 Delivery O2 Flow Rate FiO2 04/15/25 13:00 98.5 70 16 99/60 (73) 96 98.5 89 90/64 (73) 103 98/57 (71) 04/15/25 08:00 Room Air* 0 21 Intake/Output Intake and Output 04/15/25 07:00 Intake Total 950 ml Balance 950 ml Intake Oral 950 ml # Voids 4 Medications Current Medications Medications Dose Ordered Sig/Julianna Route Start Time Stop Time Status Last Admin Dose Admin Enoxaparin Sodium 40 mg DAILY SC 04/13/25 10:00 04/15/25 10:07 40 MG Sodium Chloride 1,000 ml @ 125 mls/hr Q8H IV 04/12/25 22:00 04/15/25 05:01 125 MLS/HR Pantoprazole Sodium 40 mg DAILY IV 04/13/25 10:00 04/15/25 10:07 40 MG Acetaminophen 650 mg Q6HP PRN PO 04/14/25 07:15 04/14/25 17:18 650 MG Laboratory Results Laboratory Tests 04/14/25 05:11 Urinalysis Test 04/12/25 16:30 Urine Color Light-yellow (Yellow) Urine Clarity Clear (Clear) Urine pH 7.0 (5.0-9.0) Urine Specific [place] 1.012 (1.001-1.035) Urine Protein Negative (Negative) Urine Ketones Negative (Negative) Urine Blood Negative /uL (Negative) Urine Nitrite Negative (Negative) Urine Bilirubin Negative (Negative) Urine Urobilinogen Normal mg/dL (Negative) Urine Leukocyte Esterase Negative /uL (Negative) Urine RBC 1 /hpf (0 - 4) Urine Microscopic WBC 1 /HPF (0-5) Urine Squamous Epithelial Cells Few /hpf (<5) Urine Bacteria None seen /hpf (None Seen) Urine Glucose Normal mg/dL (Normal) Microbiology Microbiology Date/Time Source Procedure Growth Status 04/12/25 23:37 Blood Blood Culture - Preliminary NO GROWTH AFTER 48 HOURS OF INCUBATION. Resulted Assessment/Plan Assessment/Plan Syncope, rule out cardiac etiology Rule out structural heart disease ?Vasovagal episode Hypokalemia, resolved History of TIA History of methamphetamine use Obesity Plan/Recommendation We will continue with the following plan/recommendations (Dr. Ortiz): * Transthoracic echocardiogram revealed EF 55% * Advised to follow-up with Cardiology in outpatient setting. We will sign off Thank you for allowing us to care for this patient. Please call with any questions or concerns. This medical document was created using an electronic medical record system with voice recognition software and computerized dictation system. Although this document has been carefully reviewed, there might still be some phonetic and typographical errors. Occasional wrong-word or ``sound-alike substitutions may have occurred due to the inherent limitations of voice recognition software. These areas are purely typographical due to imperfections of the software programs and do not reflect any compromise in the patient's medical care. Please read the chart carefully and recognize, using context, where these substitutions have occurred. Plan discussed with: Patient Plan discussed with: Patient Date of Service: Apr 15, 2025 Billing Provider: CAT ORTIZ Sr., MD Common Visit Codes: CONSULT ONLY Consultation Codes: [id number] CONSULT <45MIN TWIN COOKP Apr 15, 2025 15:11
[2025-04-15] MEDS ORDERED: POLYETHYLENE GLYCOL 17 GM PWDR PO PRN ×2 (16:15)
--- NOTE | 2025-04-15 18:24 | DVHPN2 ---
Subjective Patient has stated that she is feeling much better but has not able to eat yet we will start the patient on diet put the patient on telemetry patient's may need outpatient event monitoring or Holter monitoring upon discharge. 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 Medications Current Medications Medications Dose Ordered Sig/Julianna Route Start Time Stop Time Status Last Admin Dose Admin Enoxaparin Sodium 40 mg DAILY SC 04/13/25 10:00 04/15/25 10:07 40 MG Sodium Chloride 1,000 ml @ 125 mls/hr Q8H IV 04/12/25 22:00 04/15/25 14:00 125 MLS/HR Pantoprazole Sodium 40 mg DAILY IV 04/13/25 10:00 04/15/25 10:07 40 MG Acetaminophen 650 mg Q6HP PRN PO 04/14/25 07:15 04/14/25 17:18 650 MG Docusate Sodium 100 mg BID PO 04/15/25 22:00 Sennosides 8.6 mg HS PO 04/15/25 22:00 Polyethylene Glycol 17 gm DAILYPRN PRN PO 04/15/25 16:15 Laboratory Results Laboratory Tests 04/14/25 05:11 Urinalysis Test 04/12/25 16:30 Urine Color Light-yellow (Yellow) Urine Clarity Clear (Clear) Urine pH 7.0 (5.0-9.0) Urine Specific [place] 1.012 (1.001-1.035) Urine Protein Negative (Negative) Urine Ketones Negative (Negative) Urine Blood Negative /uL (Negative) Urine Nitrite Negative (Negative) Urine Bilirubin Negative (Negative) Urine Urobilinogen Normal mg/dL (Negative) Urine Leukocyte Esterase Negative /uL (Negative) Urine RBC 1 /hpf (0 - 4) Urine Microscopic WBC 1 /HPF (0-5) Urine Squamous Epithelial Cells Few /hpf (<5) Urine Bacteria None seen /hpf (None Seen) Urine Glucose Normal mg/dL (Normal) Microbiology Microbiology Date/Time Source Procedure Growth Status 04/12/25 23:37 Blood Blood Culture - Preliminary NO GROWTH AFTER 48 HOURS OF INCUBATION. Resulted Assessment/Plan Assessment/Plan 1. syncope suspect vasovagal/ruled out orthostatic hypotension 2. Acute kidney injury suspected secondary to vasomotor nephropathy, improved 3. Hypokalemia, improved -discontinue orthostatic vitals, close monitoring on telemetry, discharge plan once able to tolerate diet. Plan discussed with: Patient, Other My Orders Orders - SANIA BENTON MD Procedure Category Date Status Time Counselor Aide ORDERS 04/15/25 Transmitted 16:00 Docusate Sodium PHA 04/15/25 In Process Capsule (Colace 22:00 Senna Pod Tablet PHA 04/15/25 In Process (Senokot Tablet) 22:00 Polyethylene Glycol PHA 04/15/25 In Process 17g Powder (Miralax 16:15 Date of Service: Apr 15, 2025 Billing Provider: SANIA BENTON MD Common Visit Codes: [id number] INP/OBS CARE(MOD) SANIA BENTON MD Apr 15, 2025 18:24
[2025-04-15] MEDS: SENNA 8.6 MG TAB PO SCH (22:46)
[2025-04-15] MEDS: DOCUSATE SOD 100 MG CAP PO SCH (22:46)
[2025-04-16] VITALS (7 sets, daily range): BP systolic 91–130; BP diastolic 58–67; PULSE 18–94; RESP 18; TEMP 36.6; O2SAT 97–100
--- NOTE | 2025-04-16 17:56 | DVHDS2 ---
Discharge Summary Date of Admission Apr 12, 2025 at 21:58 Date of Discharge: Apr 16, 2025 Labs/Diagnostic Data: Laboratory Results Test 04/14/25 05:11 04/13/25 10:27 04/13/25 03:10 04/12/25 23:32 White Blood Count 4.9 10^3/uL (4.4-10.8) Red Blood Count 4.09 10^6/uL (4.0-5.20) Hemoglobin 12.6 g/dL (12.2-16.2) Hematocrit 36.5 % (36.0-46.0) Mean Corpuscular Volume 89.2 fL (80.0-100.0) Mean Corpuscular Hemoglobin 30.8 pg (28.0-32.0) Mean Corpuscular Hemoglobin Concent 34.6 g/dL (32.0-36.0) Red Cell Distribution Width 13.6 % (11.8-14.3) Platelet Count 124 10^3/uL (140-450) Mean Platelet Volume 8.9 fL (6.9-10.8) Neutrophils (%) (Auto) 57.7 % (37.0-80.0) Lymphocytes (%) (Auto) 35.1 % (10.0-50.0) Monocytes (%) (Auto) 5.6 % (0.0-12.0) Eosinophils (%) (Auto) 1.2 % (0.0-7.0) Basophils (%) (Auto) 0.4 % (0.0-2.0) Neutrophils # (Auto) 2.8 10 ^3/uL (1.6-8.6) Lymphocytes # (Auto) 1.7 10 ^3/uL (0.4-5.4) Monocytes # (Auto) 0.3 10 ^3/uL (0-1.3) Eosinophils # (Auto) 0.1 10 ^3/uL (0-0.8) Basophils # (Auto) 0 10 ^3/uL (0-0.2) Nucleated Red Blood Cells 0.1 % Sodium Level 140 mmol/L (136-145) Potassium Level 4.2 mmol/L (3.5-5.1) Chloride Level 105 mmol/L (98-107) Carbon Dioxide Level 24 mmol/L (20-31) Anion Gap 11 (5-15) Blood Urea Nitrogen 7 mg/dL (9-23) Creatinine 0.90 mg/dL (0.550-1.02) Glomerular Filtration Rate Calc 76 mL/min (>90) BUN/Creatinine Ratio 7.8 (10.0-20.0) Serum Glucose 77 mg/dL (74-106) Calcium Level 9.2 mg/dL (8.7-10.4) HIV (1&2) Antibody Negative (Negative) Treponema pallidum Antibody Non-reactive (Negative) Hepatitis A IgM Antibody Negative Hepatitis B Surface Antigen Negative (Negative) Hepatitis B Core IgM Antibody Negative (Negative) Hepatitis C Antibody Negative (Negative) Plasma/Serum Blood Alcohol < 3.0 mg/dL (<10) Test 04/12/25 22:20 04/12/25 16:48 04/12/25 16:30 04/12/25 14:54 Lactic Acid Level 1.0 mmol/L (0.4-2.0) Ammonia < 10 umol/L (11-32) Troponin I High Sensitivity 4 ng/L (</=34) Vitamin B12 Level 252 pg/mL (211-911) Vitamin D 25-Hydroxy 41.1 ng/mL (30.0-100) Urine Color Light-yellow (Yellow) Urine Clarity Clear (Clear) Urine pH 7.0 (5.0-9.0) Urine Specific [place] 1.012 (1.001-1.035) Urine Protein Negative (Negative) Urine Ketones Negative (Negative) Urine Blood Negative /uL (Negative) Urine Nitrite Negative (Negative) Urine Bilirubin Negative (Negative) Urine Urobilinogen Normal mg/dL (Negative) Urine Leukocyte Esterase Negative /uL (Negative) Urine RBC 1 /hpf (0 - 4) Urine Microscopic WBC 1 /HPF (0-5) Urine Squamous Epithelial Cells Few /hpf (<5) Urine Bacteria None seen /hpf (None Seen) Urine Glucose Normal mg/dL (Normal) Urine Opiates Screen Neg (NEGATIVE) Urine Fentanyl Screen Neg (NEGATIVE) Urine Barbiturates Screen Neg (NEGATIVE) Urine Phencyclidine Screen Neg (NEGATIVE) Urine Amphetamines Screen Neg (NEGATIVE) Urine Benzodiazepines Screen Neg (NEGATIVE) Urine Cocaine Screen Neg (NEGATIVE) Urine Cannabinoids Screen Neg (NEGATIVE) Phosphorus Level 3.3 mg/dL (2.4-5.1) Magnesium Level 2.4 mg/dL (1.6-2.6) Total Bilirubin 0.5 mg/dL (0.2-1.0) Direct Bilirubin 0.1 mg/dL (<0.3) Aspartate Amino Transferase (AST) 21 U/L (13-40) Alanine Aminotransferase (ALT) < 9 U/L (7-40) Alkaline Phosphatase 58 U/L (46-116) Total Protein 7.2 g/dL (5.7-8.2) Albumin 4.2 g/dL (3.2-4.8) Thyroid Stimulating Hormone (TSH) 1.69 uIU/mL (0.55-4.78) Test 04/12/25 14:03 Hemoglobin A1c 4.8 % A1C (<5.7) Other Laboratory Tests 04/14/25 05:11 Brief Hx & Hospital Course: 55-year-old female with a no significant past medical history who recently degenerative blood after that she she was visiting her friend who was a patient here eventually patient had a pass out spell. Patient was eventually admitted to monitored on telemetry, 2D echo was done as well as Cardiology was consulted. Patient's likely vasovagal syncope. Patient needs to follow up as an outpatient with the Cardiology for event monitoring. Patient is currently understand verbalized understanding and agreeable to plan. Patient's acute kidney has been resolved hypokalemia was treated. Condition at Discharge: Stable Final Diagnosis/Problems List 1. syncope suspect vasovagal/ruled out orthostatic hypotension 2. Acute kidney injury suspected secondary to vasomotor nephropathy, improved 3. Hypokalemia, improved Discharge Disposition: Home SNF Discharge Will this Physician continue t: No Discharge Instruct/Medications Diet: Cardiac 2g Na,low cholest Activity: No Restrictions, As Tolerated Follow Up/Referral: Please follow up with the PCP in 1-2 weeks Follow up with the Cardiology as an outpatient to get a event monitoring Medications: Resume home medications. Medication Profile: No Active Prescriptions or Reported Meds No Active Prescriptions or Reported Meds Discharge Statement: "Patient was advised to return to the ER or call 911 if any headaches, dizziness, shortness of breath, chest pain, abdominal pain, bleeding, fevers, or worsening of medical condition. Patient was counseled about treatment plan, medications, possible side effects, patientverbalized understanding. All questions were answered to the best of my ability. This discharge took greater then 30 minutes in planning, reviewing documentation, counseling the patient, and discussing with other team members." ASSESSMENT ASSESSMENT Assessment 1. syncope suspect vasovagal/ruled out orthostatic hypotension 2. Acute kidney injury suspected secondary to vasomotor nephropathy, improved 3. Hypokalemia, improved Date of Service: Apr 16, 2025 Billing Provider: SANIA BENTON MD Common Visit Codes: 05886-XBC/OBS DISCH DAY >30min SANIA BENTON MD Apr 16, 2025 17:56
== END 2025-04-16 19:10 | disposition home or self-care (01) | DRG 204 ==
LOC: ER 13:53 → OVERFLOW 21:58 → EAST 04-13 15:10 → TELE-EAST 04-15 16:09
PROVIDERS: ADMIT Internal Medicine; ATTEND Internal Medicine
DX: I95.1 Orthostatic hypotension (principal); N17.0 Acute kidney failure with tubular necrosis; Z68.43 Body mass index [BMI] 50.0-59.9, adult; D64.9 Anemia, unspecified; E66.01 Morbid (severe) obesity due to excess calories; E11.9 Type 2 diabetes mellitus without complications; E87.6 Hypokalemia; R91.1 Solitary pulmonary nodule; G40.909 Epilepsy, unspecified, not intractable, without status epilepticus; Z90.710 Acquired absence of both cervix and uterus; Z80.8 Family history of malignant neoplasm of other organs or systems; Z86.73 Personal history of transient ischemic attack (TIA), and cerebral infarction without residual deficits
CPT/HCPCS: 36415; 70450; 70496; 70498; 71045; 80048; 80074; 80076; 80307; 80320; 81001; 82140; 82306; 82607; 83036; 83605; 83735; 84100; 84443; 84484; 85025; 86703; 86780; 87040; 93005; 93306; 96374; 97110; 97116; 97163; 97530; 99291; G0378; J2003; J2470